=== PATIENT | female | born 1970 | race African-American/Black ===

== ENCOUNTER 2018-08-18 12:18 | Emergency (ER) | payer MEDICAID ==
[~2018-08-18] VITALS: Ht 167.6 cm; Wt 147.0 kg
[~2018-08-18 12:18] MED LIST: ALBUTEROL; ASPI-1159 PO; DILT-26; LISI-3 PO; METFORMIN; OMEP20CA10 PO; QVAR; SINGULAIR
[2018-08-18] MEDS ORDERED: SODIUM CHLORIDE 0.9% 1,000 ML IV ONE (13:41)
[2018-08-18 14:30] LABS: CHLORIDE 99 mEq/L (98-107)
[2018-08-18 14:32] LABS: BASOPHILS % 0.9 % (0.0-2.0); EOSINOPHILS % 1.6 % (0.0-5.0); HEMATOCRIT. 45.6 % (36.0-48.0); HEMOGLOBIN. 15.3 g/dL (12.0-16.0); LYMPHOCYTES % 41.4 % (20.0-50.0); MEAN CORPUSCULAR HEMOGLOBIN 30.6 pg (28.0-32.0); MEAN CORPUSCULAR VOLUME 91.3 fL (81.0-99.0); MEAN PLATELET VOLUME 10.8 fl (7.4-10.4); MONOCYTES % 4.2 % (2.0-8.0); NEUTROPHILS % 51.9 % (40.0-76.0); PLATELET 239 x1000/uL (130-400); RED BLOOD CELL COUNT 4.99 mill/uL (4.2-5.4); RED CELL DISTRIBUTION WIDTH 13.9 % (11.6-14.6)
[2018-08-18 14:36] LABS: BETA HYDROXYBUTYRATE 0.1 mMol/L (0.0-0.3)
[2018-08-18 14:39] LABS: CLARITY URINE CLEAR (CLEAR); COLOR URINE YELLOW (YELLOW); HCG SCREEN NEGATIVE; KETONES URINE 2+ (NEGATIVE); LEUKOCYTE ESTERASE URINE NEGATIVE (NEGATIVE); NITRITE URINE NEGATIVE (NEGATIVE); OCCULT BLOOD URINE NEGATIVE (NEGATIVE); PROTEIN URINE NEGATIVE (NEGATIVE); SPECIFIC GRAVITY URINE 1.036 (1.005-1.030); UROBILINOGEN URINE 0.2 E.U./dL (0.2-1.0)
[2018-08-18 14:41] LABS: PROTHROMBIN TIME 10.1 sec (9.1-11.1)
[2018-08-18] MEDS ORDERED: INSULIN REGULAR (HUMULIN R) 300UNITS/3ML IV ONE (15:00)
[2018-08-18 16:00] VITALS: BP 105/67
== END 2018-08-18 17:13 | disposition home or self-care (01) ==
LOC: ER 12:18
DX: E11.65 Type 2 diabetes mellitus with hyperglycemia (principal); L73.9 Follicular disorder, unspecified; I10 Essential (primary) hypertension
CPT/HCPCS: 36415; 80053; 81003; 82010; 82962; 83690; 83880; 84484; 84703; 85025; 85610; 93005; 96361; 96374; 99284; J1815; J7030